=== PATIENT | male | born 1950 | race Caucasian/White ===

== ENCOUNTER 2021-03-03 11:35 | Observation (INO) ==
[2021-03-03] MEDS ORDERED: Isovue-370 500 ML BOTTLE IVP ONE (13:03)
[2021-03-03 13:56] LABS: Basophils % 0.3 %; Eosinophils % 0.3 %; Hematocrit 30.9 % (37.5-50.1); Hemoglobin 9.8 g/dL (12.9-16.9); Immature Granulocytes % 1.3 % (0-4); Lymphocytes # 0.4 K/mcL (0.6-4.6); Mean Corpuscular HGB Conc 31.7 g/dL (31.6-35.5); Mean Corpuscular Hemoglobin 29.2 pg (28.0-33.3); Mean Platelet Volume 9.8 fL (9.4-12.4); Monocytes # 1.1 K/mcL (0.0-1.3); Monocytes % 12.9 %; Platelet Count 281 K/mcL (140-400); Red Blood Count 3.36 M/mcL (4.19-5.50); Segmented Neutrophils % 80.2 %; White Blood Count 8.8 K/mcL (4.3-11.1)
[2021-03-03 14:29] LABS: BUN/Creatinine Ratio 13 (6-26); Blood Urea Nitrogen 16 mg/dL (8-23); Calcium 8.2 mg/dL (8.6-10.3); Carbon Dioxide 29 mEq/L (23-29); Chloride 101 mEq/L (98-107); Glucose 112 mg/dL (70-105); Osmolality,Calculated 286 (280-300); Potassium 3.5 mEq/L (3.5-5.1); Sodium 137 mEq/L (136-145); eGFR For African Americans > 60 (> 60); eGFR For Non-African Americans 59 (> 60)
[2021-03-03] MEDS ORDERED: Aspirin 325 MG TABLET PO ONE (14:29)
[2021-03-03] MEDS ORDERED: Naloxone 0.4 MG/ML INJ IVP PRN (16:20)
[2021-03-03] MEDS ORDERED: Melatonin 3 MG TABLET PO PRN (16:26)
[2021-03-03] MEDS ORDERED: Ondansetron 4 MG/2 ML VIAL IVP PRN (16:26)
[2021-03-03] MEDS ORDERED: MethylPREDNISolone 40 MG/ML VIAL IVP SCH (16:45)
[2021-03-03] MEDS ORDERED: Ipratropium/Albuterol Neb 3 ML IH PRN (16:45)
[2021-03-03] MEDS ORDERED: Perflutren Lipid Microsphere 1.3 ML in 0.9 % Sodium Chloride 8.7 ML IVP PRN (16:46)
[2021-03-03] MEDS ORDERED: Ipratropium/Albuterol Neb 3 ML IH ONE (17:34)
[2021-03-03] MEDS ORDERED: Nitroglycerin 0.4 MG TAB.SUBL SL PRN (18:41)
[2021-03-03] MEDS ORDERED: D5% in Water 1,000 ML IVC PRN (18:43)
[2021-03-03] MEDS ORDERED: Dextrose Gel 15 GM/37.5 ML TUBE PO PRN ×2 (18:43)
[2021-03-03] MEDS ORDERED: *HR* Dextrose 50 % in Water (Vial) 50 ML VIAL IVP PRN (18:43)
[2021-03-03 19:06] LABS: Estimated Average Glucose 143 mg/dl; Hemoglobin A1C 6.6 %
[2021-03-03 19:39] LABS: Magnesium 1.6 mg/dL (1.6-2.6); Phosphorous 3.1 mg/dL (2.7-4.5)
[2021-03-03 19:43] LABS: Troponin I 0.1 ng/mL (< 0.04)
[2021-03-03] MEDS: Ipratropium/Albuterol Neb 3 ML IH SCH ×2 (19:50→23:00)
[2021-03-03] MEDS: Budesonide/Formoterol 160/4.5 1 PUFF INH IH SCH (19:50)
[2021-03-03 19:54] LABS: Thyroid Stimulating Hormone 10.591 mcIU/mL (0.340-5.600)
[2021-03-03] MEDS ORDERED: Acetylcysteine 10% 2 ML INHSOL IH SCH (20:00)
[2021-03-03] MEDS: Ampicillin/Sulbactam 3,000 MG in 0.9 % Sodium Chloride Mini Bag 100 ML IVPB SCH ×2 (20:41→23:59)
[2021-03-03 23:03] LABS: Adenovirus Not Detected (Not Detect); Bordetella Pertussis Not Detected (Not Detect); Chlamydophila pneumoniae Not Detected (Not Detect); Coronavirus 229E Not Detected (Not Detect); Coronavirus HKU1 Not Detected (Not Detect); Coronavirus NL63 Not Detected (Not Detect); Coronavirus OC43 Not Detected (Not Detect); Human Metapneumovirus Not Detected (Not Detect); Human Rhinovirus/Enterovirus Not Detected (Not Detect); Influenza A Subtype 2009 H1 Not Detected (Not Detect); Influenza B Not Detected (Not Detect); Mycoplasma pneumoniae Not Detected (Not Detect); Parainfluenza Virus 1 Not Detected (Not Detect); Parainfluenza Virus 2 Not Detected (Not Detect); Parainfluenza Virus 3 Not Detected (Not Detect); Parainfluenza Virus 4 Not Detected (Not Detect); Respiratory Syncytial Virus Not Detected (Not Detect); SARS-CoV-2 Not Detected (Not Detect)
[2021-03-04] MEDS: Ipratropium/Albuterol Neb 3 ML IH SCH ×3 (04:20→11:40)
[2021-03-04] MEDS: Ampicillin/Sulbactam 3,000 MG in 0.9 % Sodium Chloride Mini Bag 100 ML IVPB SCH ×2 (05:00→14:07)
[2021-03-04 05:11] LABS: Basophils % 0.2 %; Hematocrit 27.6 % (37.5-50.1); Hemoglobin 8.8 g/dL (12.9-16.9); Lymphocytes # 0.3 K/mcL (0.6-4.6); Lymphocytes % 4.2 %; Mean Corpuscular HGB Conc 31.9 g/dL (31.6-35.5); Mean Corpuscular Hemoglobin 28.8 pg (28.0-33.3); Mean Corpuscular Volume 90.2 fL (83.0-100.0); Mean Platelet Volume 9.9 fL (9.4-12.4); Monocytes # 0.4 K/mcL (0.0-1.3); Neutrophils # 5.3 K/mcL (1.6-8.9); Platelet Count 230 K/mcL (140-400); Red Blood Count 3.06 M/mcL (4.19-5.50); Segmented Neutrophils % 88.6 %
[2021-03-04 05:32] LABS: Alanine Aminotransferase 8 Units/L (7-52); Albumin/Globulin Ratio 1.4 (1.1-2.2); Alkaline Phosphatase 45 Units/L (34-104); Aspartate Amino Transferase 11 Units/L (13-39); BUN/Creatinine Ratio 14 (6-26); Bilirubin,Total 0.3 mg/dL (0.3-1.0); Blood Urea Nitrogen 16 mg/dL (8-23); Calcium 8.2 mg/dL (8.6-10.3); Carbon Dioxide 28 mEq/L (23-29); Chloride 102 mEq/L (98-107); Globulin 2.2 g/dL (2.4-3.5); Glucose 175 mg/dL (70-105); Magnesium 1.6 mg/dL (1.6-2.6); Osmolality,Calculated 291 (280-300); Phosphorous 3.6 mg/dL (2.7-4.5); Potassium 3.8 mEq/L (3.5-5.1); Sodium 138 mEq/L (136-145); Total Protein 5.2 g/dL (6.4-8.9); eGFR For African Americans > 60 (> 60); eGFR For Non-African Americans > 60 (> 60)
[2021-03-04] MEDS ORDERED: Sucralfate 1 GM TABLET PO PRN (07:37)
[2021-03-04] MEDS ORDERED: MethylPREDNISolone 40 MG/ML VIAL IVP SCH (08:00)
[2021-03-04] MEDS: Budesonide/Formoterol 160/4.5 1 PUFF INH IH SCH (08:15)
[2021-03-04] MEDS ORDERED: lisinopriL 20 MG TABLET PO SCH (09:00)
[2021-03-04] MEDS ORDERED: Cyanocobalamin (B-12) 1,000 MCG TABLET PO SCH (09:00)
[2021-03-04] MEDS ORDERED: Lactobacillus 1 EACH CAP.SPRINK PO SCH (09:00)
[2021-03-04] MEDS: Calcium Gluconate 1gm/50mL 1 GM/50 ML BAG IVPB SCH ×2 (10:47→11:51)
[2021-03-04 11:18] LABS: Hematocrit 27.1 % (37.5-50.1); Hemoglobin 8.8 g/dL (12.9-16.9)
[2021-03-04 12:00] LABS: Triiodothyronine (T3) Total 0.72 ng/mL (0.87-1.78)
[2021-03-04 12:13] VITALS: BP 142/88
== END 2021-03-04 16:18 | disposition home health service (06) ==
LOC: EMEROOARM 11:35 → 2NENU 11:35 → SUATTDRO 16:15 → 2NENU 16:46
PROVIDERS: ADMIT Internal Medicine; ATTEND Internal Medicine

== ENCOUNTER 2021-06-03 08:41 | Observation (INO) ==
[2021-06-03 09:14] LABS: INR 1.2; Prothrombin Time 13.5 Seconds (9.4-12.1)
[2021-06-03] MEDS ORDERED: *HR* FentaNYL (PF) 100 MCG/2 ML VIAL ONE (11:03)
[2021-06-03] MEDS ORDERED: *HR* FentaNYL (PF) 100 MCG/2 ML VIAL IVP ONE (11:15)
[2021-06-03] MEDS ORDERED: Naloxone 0.4 MG/ML INJ IVP PRN (12:41)
[2021-06-03] MEDS ORDERED: Acetaminophen 325 MG TABLET PO PRN (12:41)
[2021-06-03] MEDS ORDERED: Ondansetron 4 MG/2 ML VIAL IVP PRN (12:41)
[2021-06-03] MEDS ORDERED: Melatonin 3 MG TABLET PO PRN (12:41)
[2021-06-03] MEDS: *HR* HYDROcodone/Acet 5/325 mg TABLET PO PRN ×2 (12:54→20:07)
[2021-06-03 13:36] LABS: Basophils % 0.3 %; Eosinophils # 0.4 K/mcL (0.0-0.6); Eosinophils % 2.6 %; Hematocrit 34.2 % (37.5-50.1); Hemoglobin 11.4 g/dL (12.9-16.9); Immature Granulocytes % 0.6 % (0-4); Lymphocytes # 0.6 K/mcL (0.6-4.6); Lymphocytes % 4.1 %; Mean Corpuscular HGB Conc 33.3 g/dL (31.6-35.5); Mean Corpuscular Hemoglobin 30.4 pg (28.0-33.3); Mean Corpuscular Volume 91.2 fL (83.0-100.0); Mean Platelet Volume 9.2 fL (9.4-12.4); Monocytes % 7.3 %; Platelet Count 310 K/mcL (140-400); Red Blood Count 3.75 M/mcL (4.19-5.50); Red Cell Distribution Width 13.3 % (11.5-14.5); Segmented Neutrophils % 85.1 %; White Blood Count 14.1 K/mcL (4.3-11.1)
[2021-06-03 13:51] LABS: Calcium 9.4 mg/dL (8.6-10.3); Magnesium 1.8 mg/dL (1.6-2.6); Phosphorous 3.8 mg/dL (2.7-4.5); Potassium 4.5 mEq/L (3.5-5.1)
[2021-06-03] MEDS: *HR* OxyCODONE Immed Rel 5 MG TABLET PO PRN ×2 (15:27→22:47)
[2021-06-03] MEDS ORDERED: methylPREDNISolone 125 MG/2 ML VIAL IVP ONE (17:11)
[2021-06-03] MEDS: Ringers Solution, Lactated 1,000 ML IVC SCH (17:53)
[2021-06-03] MEDS: Ipratropium/Albuterol Neb 3 ML IH SCH ×3 (19:12→23:28)
[2021-06-03] MEDS ORDERED: Ipratropium/Albuterol Neb 3 ML IH SCH (20:00)
[2021-06-03] MEDS: Budesonide/Formoterol 160/4.5 1 PUFF INH IH SCH (20:06)
[2021-06-03] MEDS: Chlorhexidine Rinse 15 ML MOUTHWASH MM SCH (20:07)
[2021-06-03] MEDS: Acetylcysteine 10% 2 ML INHSOL IH SCH (22:49)
[2021-06-04] MEDS: Ipratropium/Albuterol Neb 3 ML IH SCH ×4 (03:45→15:45)
[2021-06-04] MEDS: *HR* HYDROcodone/Acet 5/325 mg TABLET PO PRN ×2 (03:46→15:11)
[2021-06-04] MEDS: Ringers Solution, Lactated 1,000 ML IVC SCH (03:49)
[2021-06-04] MEDS: Budesonide/Formoterol 160/4.5 1 PUFF INH IH SCH (07:26)
[2021-06-04] MEDS: Acetylcysteine 10% 2 ML INHSOL IH SCH (07:28)
[2021-06-04] MEDS ORDERED: lisinopriL 20 MG TABLET PO SCH (09:00)
[2021-06-04] MEDS ORDERED: Sulfamethoxazole/Trimeth DS 1 EACH TABLET PO SCH (09:00)
[2021-06-04] MEDS ORDERED: predniSONE 20 MG TABLET PO SCH (09:00)
[2021-06-04] MEDS ORDERED: hydroCHLOROthiazide 25 MG TABLET PO SCH (09:00)
[2021-06-04] MEDS: Chlorhexidine Rinse 15 ML MOUTHWASH MM SCH (09:08)
[2021-06-04 09:25] LABS: Eosinophils % 0.9 %; Hematocrit 34.1 % (37.5-50.1); Immature Granulocytes % 0.5 % (0-4); Lymphocytes % 4.3 %; Mean Corpuscular HGB Conc 32.3 g/dL (31.6-35.5); Mean Corpuscular Hemoglobin 29.7 pg (28.0-33.3); Mean Corpuscular Volume 92.2 fL (83.0-100.0); Monocytes % 5.3 %; Platelet Count 276 K/mcL (140-400); Red Cell Distribution Width 13.4 % (11.5-14.5); Segmented Neutrophils % 88.8 %; White Blood Count 12.9 K/mcL (4.3-11.1)
[2021-06-04 09:26] LABS: Basophils % 0.2 %; Eosinophils # 0.1 K/mcL (0.0-0.6); Lymphocytes # 0.6 K/mcL (0.6-4.6); Monocytes # 0.7 K/mcL (0.0-1.3); Neutrophils # 11.4 K/mcL (1.6-8.9)
[2021-06-04 09:44] LABS: Calcium 9.2 mg/dL (8.6-10.3); Magnesium 1.8 mg/dL (1.6-2.6); Phosphorous 4.2 mg/dL (2.7-4.5)
[2021-06-04 15:19] VITALS: BP 137/80; PULSE 72; TEMP 98.2
[2021-06-04 15:48] VITALS: O2SAT 96
== END 2021-06-04 17:44 | disposition home or self-care (01) ==
LOC: SUATTDRO → 2NENU 08:41 → RAD 08:41
PROVIDERS: ADMIT Internal Medicine; ATTEND Internal Medicine

== ENCOUNTER 2021-08-15 02:53 | Inpatient (IN) ==
[2021-08-15] MEDS ORDERED: Aspirin 81 MG TAB.CHEW PO ONE (03:09)
[2021-08-15] MEDS ORDERED: *HR* Ticagrelor 90 MG TABLET PO STA (03:09)
[2021-08-15] MEDS ORDERED: Nitroglycerin 1,000 MCG/5 ML VIAL IV ONE (03:29)
[2021-08-15] MEDS ORDERED: 0.9 % Sodium Chloride 1,000 ML ONE ×2 (03:29→03:55)
[2021-08-15] MEDS ORDERED: Heparin 1,000 UNITS/500 mL 500 ML ONE (03:29)
[2021-08-15] MEDS ORDERED: ISOVUE-370 200 ML INFUS..BTL ONE ×2 (03:29→04:16)
[2021-08-15] MEDS ORDERED: *HR* Heparin 10,000 UNIT/10 ML VIAL ONE ×2 (03:29→04:07)
[2021-08-15] MEDS ORDERED: *HR* FentaNYL (PF) 100 MCG/2 ML VIAL ONE (03:37)
[2021-08-15] MEDS ORDERED: *HR* Midazolam HCl 2 MG/2 ML VIAL ONE (03:37)
[2021-08-15 03:40] LABS: Basophils # 0.1 K/mcL (0.0-0.2); Basophils % 0.4 %; Eosinophils # 0.4 K/mcL (0.0-0.6); Eosinophils % 2.6 %; Hematocrit 30.5 % (37.5-50.1); Hemoglobin 9.1 g/dL (12.9-16.9); Immature Granulocytes % 0.4 % (0-4); Lymphocytes # 0.7 K/mcL (0.6-4.6); Lymphocytes % 5.1 %; Mean Corpuscular HGB Conc 29.8 g/dL (31.6-35.5); Mean Corpuscular Hemoglobin 27.9 pg (28.0-33.3); Mean Corpuscular Volume 93.6 fL (83.0-100.0); Mean Platelet Volume 9.4 fL (9.4-12.4); Monocytes % 7.3 %; Neutrophils # 11.3 K/mcL (1.6-8.9); Platelet Count 327 K/mcL (140-400); Red Blood Count 3.26 M/mcL (4.19-5.50); Red Cell Distribution Width 14.1 % (11.5-14.5); Segmented Neutrophils % 84.2 %; White Blood Count 13.4 K/mcL (4.3-11.1)
[2021-08-15 03:46] LABS: BUN/Creatinine Ratio 12 (6-26); Blood Urea Nitrogen 15 mg/dL (8-23); Calcium 9.4 mg/dL (8.6-10.3); Carbon Dioxide 33 mEq/L (23-29); Chloride 94 mEq/L (98-107); Glucose 179 mg/dL (70-105); Osmolality,Calculated 285 (280-300); Potassium 4.1 mEq/L (3.5-5.1); Sodium 135 mEq/L (136-145); eGFR For African Americans > 60 (> 60); eGFR For Non-African Americans 57 (> 60)
[2021-08-15 04:01] LABS: Troponin I 0.05 ng/mL (< 0.04)
[2021-08-15 04:02] LABS: INR 1.2; Prothrombin Time 13.4 Seconds (9.4-12.1)
[2021-08-15] MEDS ORDERED: *HR* Ticagrelor 90 MG TABLET ONE (04:03)
[2021-08-15 04:04] LABS: Activated Partial Thrombo Time 31.6 Seconds (26.0-36.0)
[2021-08-15] MEDS ORDERED: Tirofiban 12.5 MG/250ML 12.5 MG/250 ML BAG ONE (04:12)
[2021-08-15] MEDS ORDERED: niCARdipine 20 MG/200 ML MLS IVC ONE (04:21)
[2021-08-15] MEDS ORDERED: Protamine Sulfate 50 MG/5 ML VIAL IVP ONE (04:38)
[2021-08-15] MEDS ORDERED: Acetylcysteine 10% 2 ML INHSOL IH PRN (04:50)
[2021-08-15] MEDS ORDERED: Albuterol 2.5 MG/3 ML NEBULIZER IH PRN (04:50)
[2021-08-15] MEDS ORDERED: Tirofiban 12.5 MG/250ML 12.5 MG/250 ML BAG IVC SCH (05:00)
[2021-08-15] MEDS: Metoprolol XL (24 HR) Succ 25 MG TAB.ER.24H PO SCH (08:01)
[2021-08-15] MEDS: *HR* OxyCODONE Immed Rel 5 MG TABLET PO PRN ×3 (08:02→21:44)
[2021-08-15] MEDS: lisinopriL 20 MG TABLET PO SCH (08:04)
[2021-08-15] MEDS: dexAMETHasone 4 MG TABLET PO SCH (08:04)
[2021-08-15] MEDS: Budesonide/Formoterol 160/4.5 1 PUFF INH IH SCH ×2 (10:16→19:37)
[2021-08-15] MEDS ORDERED: Perflutren Lipid Microsphere 1.3 ML in 0.9 % Sodium Chloride 8.7 ML IVP PRN (14:21)
[2021-08-15] MEDS: Azithromycin 500 MG in 0.9 % Sodium Chloride 250 ML IVPB SCH (15:01)
[2021-08-15] MEDS: cefTRIAXone 1,000 MG in 0.9 % Sodium Chloride Mini Bag 100 ML IVPB SCH (15:55)
[2021-08-15] MEDS: Patient Taking Own Medication 1 EACH NS SCH ×2 (17:47→20:15)
[2021-08-15] MEDS: *HR* Heparin 5,000 UNIT/ML VIAL SQ SCH (17:47)
[2021-08-15] MEDS: *HR* Ticagrelor 90 MG TABLET PO SCH (20:15)
[2021-08-16] MEDS: *HR* OxyCODONE Immed Rel 5 MG TABLET PO PRN ×3 (03:15→17:38)
[2021-08-16] MEDS: *HR* Heparin 5,000 UNIT/ML VIAL SQ SCH ×2 (06:00→17:38)
[2021-08-16 07:13] LABS: Basophils % 0.3 %; Eosinophils # 0.4 K/mcL (0.0-0.6); Eosinophils % 2.8 %; Hematocrit 28.5 % (37.5-50.1); Hemoglobin 8.9 g/dL (12.9-16.9); Immature Granulocytes % 0.4 % (0-4); Lymphocytes # 0.5 K/mcL (0.6-4.6); Lymphocytes % 3.6 %; Mean Corpuscular HGB Conc 31.2 g/dL (31.6-35.5); Mean Corpuscular Hemoglobin 28.7 pg (28.0-33.3); Mean Corpuscular Volume 91.9 fL (83.0-100.0); Mean Platelet Volume 9.6 fL (9.4-12.4); Monocytes # 1.1 K/mcL (0.0-1.3); Monocytes % 7.9 %; Neutrophils # 11.8 K/mcL (1.6-8.9); Platelet Count 350 K/mcL (140-400); Red Cell Distribution Width 14.3 % (11.5-14.5); White Blood Count 13.9 K/mcL (4.3-11.1)
[2021-08-16 07:32] LABS: BUN/Creatinine Ratio 13 (6-26); Blood Urea Nitrogen 15 mg/dL (8-23); Calcium 9.1 mg/dL (8.6-10.3); Carbon Dioxide 32 mEq/L (23-29); Chloride 95 mEq/L (98-107); Glucose 115 mg/dL (70-105); Osmolality,Calculated 278 (280-300); Potassium 4.3 mEq/L (3.5-5.1); Sodium 133 mEq/L (136-145); eGFR For African Americans > 60 (> 60); eGFR For Non-African Americans > 60 (> 60)
[2021-08-16] MEDS: lisinopriL 20 MG TABLET PO SCH (08:05)
[2021-08-16] MEDS: Metoprolol XL (24 HR) Succ 25 MG TAB.ER.24H PO SCH (08:06)
[2021-08-16] MEDS: cefTRIAXone 1,000 MG in 0.9 % Sodium Chloride Mini Bag 100 ML IVPB SCH (08:06)
[2021-08-16] MEDS: Patient Taking Own Medication 1 EACH NS SCH ×2 (08:06→21:20)
[2021-08-16] MEDS: *HR* Ticagrelor 90 MG TABLET PO SCH ×2 (08:07→21:19)
[2021-08-16] MEDS: dexAMETHasone 4 MG TABLET PO SCH (08:07)
[2021-08-16] MEDS: Aspirin 81 MG TAB.CHEW PO SCH (08:07)
[2021-08-16] MEDS ORDERED: Metoprolol XL (24 HR) Succ 25 MG TAB.ER.24H PO ONE (09:30)
[2021-08-16] MEDS: Budesonide/Formoterol 160/4.5 1 PUFF INH IH SCH ×2 (11:31→20:09)
[2021-08-16] MEDS: Azithromycin 500 MG in 0.9 % Sodium Chloride 250 ML IVPB SCH (11:58)
[2021-08-16] MEDS: traZODone 50 MG TABLET PO SCH (21:19)
[2021-08-17] MEDS: *HR* OxyCODONE Immed Rel 5 MG TABLET PO PRN ×3 (03:52→19:41)
[2021-08-17] MEDS: *HR* Heparin 5,000 UNIT/ML VIAL SQ SCH ×2 (05:37→19:41)
[2021-08-17] MEDS: cefTRIAXone 1,000 MG in 0.9 % Sodium Chloride Mini Bag 100 ML IVPB SCH (08:13)
[2021-08-17] MEDS: Aspirin 81 MG TAB.CHEW PO SCH (08:13)
[2021-08-17] MEDS: dexAMETHasone 4 MG TABLET PO SCH (08:14)
[2021-08-17] MEDS: *HR* Ticagrelor 90 MG TABLET PO SCH ×2 (08:14→23:00)
[2021-08-17] MEDS: Metoprolol XL (24 HR) Succ 25 MG TAB.ER.24H PO SCH (08:14)
[2021-08-17] MEDS: Patient Taking Own Medication 1 EACH NS SCH ×2 (08:14→22:59)
[2021-08-17] MEDS: lisinopriL 20 MG TABLET PO SCH (08:14)
[2021-08-17 09:06] LABS: Basophils # 0.1 K/mcL (0.0-0.2); Basophils % 0.4 %; Eosinophils # 0.3 K/mcL (0.0-0.6); Eosinophils % 1.9 %; Hemoglobin 9.2 g/dL (12.9-16.9); Immature Granulocytes % 0.7 % (0-4); Lymphocytes # 0.7 K/mcL (0.6-4.6); Lymphocytes % 5.2 %; Mean Corpuscular HGB Conc 30.7 g/dL (31.6-35.5); Mean Corpuscular Hemoglobin 28.3 pg (28.0-33.3); Mean Corpuscular Volume 92.3 fL (83.0-100.0); Mean Platelet Volume 9.5 fL (9.4-12.4); Monocytes % 7.2 %; Platelet Count 366 K/mcL (140-400); Red Blood Count 3.25 M/mcL (4.19-5.50); Red Cell Distribution Width 14.4 % (11.5-14.5); Segmented Neutrophils % 84.6 %; White Blood Count 14.2 K/mcL (4.3-11.1)
[2021-08-17 09:25] LABS: BUN/Creatinine Ratio 15 (6-26); Blood Urea Nitrogen 19 mg/dL (8-23); Calcium 9.3 mg/dL (8.6-10.3); Carbon Dioxide 33 mEq/L (23-29); Chloride 95 mEq/L (98-107); Glucose 108 mg/dL (70-105); Osmolality,Calculated 279 (280-300); Sodium 133 mEq/L (136-145); eGFR For African Americans > 60 (> 60); eGFR For Non-African Americans 57 (> 60)
[2021-08-17] MEDS: Budesonide/Formoterol 160/4.5 1 PUFF INH IH SCH ×2 (10:10→21:11)
[2021-08-17] MEDS ORDERED: Isovue-370 500 ML BOTTLE IVP ONE (12:31)
[2021-08-17] MEDS: traZODone 50 MG TABLET PO SCH (22:58)
[2021-08-18] MEDS: *HR* OxyCODONE Immed Rel 5 MG TABLET PO PRN ×2 (02:05→14:27)
[2021-08-18] MEDS: *HR* Heparin 5,000 UNIT/ML VIAL SQ SCH (05:34)
[2021-08-18 07:21] VITALS: BP 120/69; TEMP 97.9
[2021-08-18] MEDS: Budesonide/Formoterol 160/4.5 1 PUFF INH IH SCH (08:40)
[2021-08-18] MEDS: Aspirin 81 MG TAB.CHEW PO SCH (08:50)
[2021-08-18] MEDS: lisinopriL 20 MG TABLET PO SCH (08:50)
[2021-08-18] MEDS: Metoprolol XL (24 HR) Succ 25 MG TAB.ER.24H PO SCH (08:50)
[2021-08-18] MEDS: dexAMETHasone 4 MG TABLET PO SCH (08:50)
[2021-08-18] MEDS: *HR* Ticagrelor 90 MG TABLET PO SCH (08:51)
[2021-08-18] MEDS: Patient Taking Own Medication 1 EACH NS SCH (08:56)
[2021-08-18 09:04] VITALS: O2SAT 96
[2021-08-18] MEDS ORDERED: E-Z-PAQUE (BARIUM SULF) SUSP 1 BOTTLE PO ONE (09:36)
[2021-08-18] MEDS ORDERED: Barium Sulfate 1 TAB TABLET PO ONE (09:36)
[2021-08-18 10:01] VITALS: PULSE 80
== END 2021-08-18 17:03 | disposition home or self-care (01) | DRG 247 ==
LOC: EMEROOARM 02:53 → 2NNU 03:47 → 2NENU 08-17 18:22
PROVIDERS: ADMIT Internal Medicine Interventional Cardiology; ATTEND Internal Medicine Interventional Cardiology

== ENCOUNTER 2021-08-22 01:18 | Inpatient (IN) ==
[2021-08-22] MEDS ORDERED: Isovue-370 500 ML BOTTLE IVP ONE (01:58)
[2021-08-22 02:23] LABS: Basophils # 0.1 K/mcL (0.0-0.2); Basophils % 0.3 %; Eosinophils # 0.3 K/mcL (0.0-0.6); Eosinophils % 1.2 %; Hematocrit 29.6 % (37.5-50.1); Immature Granulocytes % 1.2 % (0-4); Lymphocytes # 0.5 K/mcL (0.6-4.6); Mean Corpuscular HGB Conc 30.4 g/dL (31.6-35.5); Mean Corpuscular Hemoglobin 28.5 pg (28.0-33.3); Mean Corpuscular Volume 93.7 fL (83.0-100.0); Mean Platelet Volume 9.3 fL (9.4-12.4); Monocytes % 5.5 %; Neutrophils # 20.3 K/mcL (1.6-8.9); Platelet Count 361 K/mcL (140-400); Red Blood Count 3.16 M/mcL (4.19-5.50); Red Cell Distribution Width 14.9 % (11.5-14.5); Segmented Neutrophils % 89.8 %
[2021-08-22 02:24] LABS: Monocytes # 1.2 K/mcL (0.0-1.3); White Blood Count 22.6 K/mcL (4.3-11.1)
[2021-08-22 02:45] LABS: BUN/Creatinine Ratio 24 (6-26); Blood Urea Nitrogen 29 mg/dL (8-23); Carbon Dioxide 29 mEq/L (23-29); Chloride 97 mEq/L (98-107); Glucose 147 mg/dL (70-105); Osmolality,Calculated 289 (280-300); Potassium 3.8 mEq/L (3.5-5.1); Sodium 135 mEq/L (136-145); eGFR For African Americans > 60 (> 60); eGFR For Non-African Americans 60 (> 60)
[2021-08-22] MEDS ORDERED: Aspirin 81 MG TAB.CHEW PO ONE (02:55)
[2021-08-22] MEDS ORDERED: *HR* Heparin 5,000 UNIT/ML VIAL IVP PRN ×2 (02:59)
[2021-08-22] MEDS ORDERED: *HR* Heparin 5,000 UNIT/ML VIAL IVP ONE (02:59)
[2021-08-22] MEDS ORDERED: Heparin 25,000UNIT/250ML 1/2NS 25,000 UNIT/250 ML IV.SOLN IVC SCH ×2 (03:00→03:15)
[2021-08-22 03:37] LABS: Hematocrit 27.7 % (37.5-50.1); Hemoglobin 8.4 g/dL (12.9-16.9); Mean Corpuscular HGB Conc 30.3 g/dL (31.6-35.5); Mean Corpuscular Hemoglobin 28.5 pg (28.0-33.3); Mean Corpuscular Volume 93.9 fL (83.0-100.0); Mean Platelet Volume 9.2 fL (9.4-12.4); Platelet Count 340 K/mcL (140-400); Red Blood Count 2.95 M/mcL (4.19-5.50); Red Cell Distribution Width 14.9 % (11.5-14.5); White Blood Count 21.2 K/mcL (4.3-11.1)
[2021-08-22 03:48] LABS: Heparin anti-factor XA UFH < 0.04 IU/mL (0.30-0.70)
[2021-08-22 03:49] LABS: INR 1.2; Prothrombin Time 13.8 Seconds (9.4-12.1)
[2021-08-22] MEDS ORDERED: Vancomycin 1,750 MG/517.5 ML IV.SOLN IVPB ONE (04:19)
[2021-08-22] MEDS ORDERED: Piperacillin/Tazobactam 3.375 GM in 0.9 % Sodium Chloride Mini Bag 100 ML IVPB ONE (04:19)
[2021-08-22 05:38] LABS: Influenza A PCR Negative (Negative); Influenza B PCR Negative (Negative); Resp. Syncytial Virus PCR Negative (Negative)
[2021-08-22 05:39] LABS: SARS-CoV-2 by PCR (In House) Negative (Negative)
[2021-08-22] MEDS ORDERED: Naloxone 0.4 MG/ML INJ IVP PRN (06:17)
[2021-08-22] MEDS ORDERED: Acetaminophen 325 MG TABLET PO PRN (06:17)
[2021-08-22] MEDS ORDERED: Ondansetron ODT 4 MG TAB.RAPDIS SL PRN (06:17)
[2021-08-22] MEDS ORDERED: Metoprolol XL (24 HR) Succ 25 MG TAB.ER.24H PO SCH (09:00)
[2021-08-22] MEDS: Metoprolol XL (24 HR) Succ 50 MG TAB.ER.24H PO SCH (09:11)
[2021-08-22] MEDS: *HR* Ticagrelor 90 MG TABLET PO SCH ×2 (09:11→21:57)
[2021-08-22] MEDS: Aspirin 81 MG TAB.CHEW PO SCH (09:13)
[2021-08-22 13:51] LABS: Bilirubin,Urine Negative (Negative); Blood,Urine Negative (Negative); Clarity,Urine Clear (Clear); Color,Urine Light-Yellow (Yellow); Glucose,Urine (UA) Normal (Normal); Ketones,Urine Negative (Negative); Leukocyte Esterase,Urine Negative (Negative); Nitrite,Urine Negative (Negative); Protein,Urine Trace mg/dL (Neg-Trace); Specific Gravity,Urine > 1.030 (1.010-1.025); Urobilinogen,Urine Normal (Normal)
[2021-08-22] MEDS: Piperacillin/Tazobactam 3.375 GM in 0.9 % Sodium Chloride Mini Bag 100 ML IVPB SCH ×2 (14:40→21:55)
[2021-08-22] MEDS: Ipratropium/Albuterol Neb 3 ML IH PRN (17:46)
[2021-08-22] MEDS ORDERED: *HR* HYDROcodone/Acet 5/325 mg TABLET PO PRN (20:41)
[2021-08-22] MEDS ORDERED: Vancomycin 1,500 MG/265 ML IV.SOLN IVPB SCH (21:00)
[2021-08-22] MEDS: *HR* OxyCODONE Immed Rel 5 MG TABLET PO PRN (21:57)
[2021-08-22] MEDS: Budesonide/Formoterol 160/4.5 1 PUFF INH IH SCH (22:23)
[2021-08-23 02:51] LABS: INR 1.3; Prothrombin Time 14.2 Seconds (9.4-12.1)
[2021-08-23 02:53] LABS: Basophils % 0.3 %; Eosinophils # 0.5 K/mcL (0.0-0.6); Eosinophils % 3.6 %; Hematocrit 28.8 % (37.5-50.1); Hemoglobin 8.7 g/dL (12.9-16.9); Immature Granulocytes % 0.8 % (0-4); Lymphocytes # 0.5 K/mcL (0.6-4.6); Lymphocytes % 3.6 %; Mean Corpuscular HGB Conc 30.2 g/dL (31.6-35.5); Mean Corpuscular Hemoglobin 28.1 pg (28.0-33.3); Mean Corpuscular Volume 92.9 fL (83.0-100.0); Mean Platelet Volume 9.5 fL (9.4-12.4); Monocytes # 0.8 K/mcL (0.0-1.3); Monocytes % 6.1 %; Neutrophils # 11.8 K/mcL (1.6-8.9); Platelet Count 324 K/mcL (140-400); Red Cell Distribution Width 15.4 % (11.5-14.5); Segmented Neutrophils % 85.6 %; White Blood Count 13.8 K/mcL (4.3-11.1)
[2021-08-23 02:57] LABS: Alanine Aminotransferase 13 Units/L (7-52); Albumin 3.2 g/dL (3.5-5.7); Albumin/Globulin Ratio 1.2 (1.1-2.2); Alkaline Phosphatase 49 Units/L (34-104); Aspartate Amino Transferase 15 Units/L (13-39); BUN/Creatinine Ratio 17 (6-26); Bilirubin,Total 0.5 mg/dL (0.3-1.0); Blood Urea Nitrogen 20 mg/dL (8-23); Calcium 8.4 mg/dL (8.6-10.3); Carbon Dioxide 26 mEq/L (23-29); Chloride 100 mEq/L (98-107); Globulin 2.7 g/dL (2.4-3.5); Glucose 103 mg/dL (70-105); Magnesium 1.6 mg/dL (1.6-2.6); Osmolality,Calculated 281 (280-300); Potassium 3.9 mEq/L (3.5-5.1); Sodium 134 mEq/L (136-145); Total Protein 5.9 g/dL (6.4-8.9); eGFR For African Americans > 60 (> 60); eGFR For Non-African Americans > 60 (> 60)
[2021-08-23] MEDS: *HR* Enoxaparin 40 MG/0.4 ML SYRINGE SQ SCH (06:08)
[2021-08-23] MEDS: Piperacillin/Tazobactam 3.375 GM in 0.9 % Sodium Chloride Mini Bag 100 ML IVPB SCH ×3 (06:09→22:37)
[2021-08-23] MEDS: *HR* OxyCODONE Immed Rel 5 MG TABLET PO PRN ×3 (06:10→19:58)
[2021-08-23] MEDS: Metoprolol XL (24 HR) Succ 50 MG TAB.ER.24H PO SCH (07:59)
[2021-08-23] MEDS: *HR* Ticagrelor 90 MG TABLET PO SCH ×2 (07:59→22:36)
[2021-08-23] MEDS: Aspirin 81 MG TAB.CHEW PO SCH (08:00)
[2021-08-23 08:09] LABS: Troponin I 1.33 ng/mL (< 0.04)
[2021-08-23] MEDS ORDERED: lisinopriL 20 MG TABLET PO SCH (09:00)
[2021-08-23] MEDS: Budesonide/Formoterol 160/4.5 1 PUFF INH IH SCH ×2 (09:05→20:22)
[2021-08-23] MEDS ORDERED: Isosorbide MONOnitrate (24 HR) 30 MG TAB.ER.24H PO ONE (13:18)
[2021-08-23] MEDS: Ipratropium/Albuterol Neb 3 ML IH PRN (22:08)
[2021-08-24] MEDS: Ipratropium/Albuterol Neb 3 ML IH PRN ×2 (04:42→09:28)
[2021-08-24 05:14] LABS: Basophils # 0.1 K/mcL (0.0-0.2); Basophils % 0.5 %; Eosinophils # 0.6 K/mcL (0.0-0.6); Eosinophils % 3.8 %; Hematocrit 26.6 % (37.5-50.1); Hemoglobin 8.4 g/dL (12.9-16.9); Immature Granulocytes % 1.3 % (0-4); Lymphocytes # 0.6 K/mcL (0.6-4.6); Lymphocytes % 4.1 %; Mean Corpuscular HGB Conc 31.6 g/dL (31.6-35.5); Mean Corpuscular Hemoglobin 29.4 pg (28.0-33.3); Mean Platelet Volume 9.4 fL (9.4-12.4); Monocytes # 1.1 K/mcL (0.0-1.3); Monocytes % 7.2 %; Neutrophils # 12.6 K/mcL (1.6-8.9); Platelet Count 341 K/mcL (140-400); Red Blood Count 2.86 M/mcL (4.19-5.50); Red Cell Distribution Width 15.3 % (11.5-14.5); Segmented Neutrophils % 83.1 %; White Blood Count 15.2 K/mcL (4.3-11.1)
[2021-08-24] MEDS: Piperacillin/Tazobactam 3.375 GM in 0.9 % Sodium Chloride Mini Bag 100 ML IVPB SCH (05:45)
[2021-08-24] MEDS: *HR* Enoxaparin 40 MG/0.4 ML SYRINGE SQ SCH (05:45)
[2021-08-24] MEDS: *HR* OxyCODONE Immed Rel 5 MG TABLET PO PRN ×2 (05:46→13:47)
[2021-08-24 05:54] LABS: BUN/Creatinine Ratio 16 (6-26); Blood Urea Nitrogen 21 mg/dL (8-23); Calcium 8.6 mg/dL (8.6-10.3); Carbon Dioxide 27 mEq/L (23-29); Chloride 100 mEq/L (98-107); Glucose 103 mg/dL (70-105); Osmolality,Calculated 281 (280-300); Potassium 3.9 mEq/L (3.5-5.1); Sodium 134 mEq/L (136-145); eGFR For African Americans > 60 (> 60); eGFR For Non-African Americans 53 (> 60)
[2021-08-24] MEDS: Metoprolol XL (24 HR) Succ 50 MG TAB.ER.24H PO SCH (08:28)
[2021-08-24] MEDS: Aspirin 81 MG TAB.CHEW PO SCH (08:33)
[2021-08-24] MEDS: *HR* Ticagrelor 90 MG TABLET PO SCH (08:34)
[2021-08-24] MEDS: Budesonide/Formoterol 160/4.5 1 PUFF INH IH SCH (09:28)
[2021-08-24 12:44] VITALS: BP 120/63; PULSE 77; TEMP 98.2; O2SAT 98
== END 2021-08-24 13:58 | disposition home or self-care (01) | DRG 871 ==
LOC: EMEROOARM 01:18 → 2NENU 01:18 → SUATTDRO 06:40 → 2NENU 06:54
PROVIDERS: ADMIT Student in an Organized Health Care Education/Training Program; ATTEND Internal Medicine

== ENCOUNTER 2021-08-29 15:01 | Inpatient (IN) ==
[2021-08-29 16:41] LABS: Basophils # 0.1 K/mcL (0.0-0.2); Basophils % 0.3 %; Eosinophils # 0.7 K/mcL (0.0-0.6); Eosinophils % 3.6 %; Hematocrit 33.1 % (37.5-50.1); Hemoglobin 9.7 g/dL (12.9-16.9); Immature Granulocytes % 0.7 % (0-4); Lymphocytes # 0.5 K/mcL (0.6-4.6); Lymphocytes % 2.4 %; Mean Corpuscular HGB Conc 29.3 g/dL (31.6-35.5); Mean Corpuscular Hemoglobin 27.6 pg (28.0-33.3); Mean Platelet Volume 9.6 fL (9.4-12.4); Monocytes % 5.1 %; Neutrophils # 17.8 K/mcL (1.6-8.9); Platelet Count 355 K/mcL (140-400); Red Blood Count 3.52 M/mcL (4.19-5.50); Red Cell Distribution Width 15.6 % (11.5-14.5); Segmented Neutrophils % 87.9 %; White Blood Count 20.3 K/mcL (4.3-11.1)
[2021-08-29 16:47] LABS: Albumin 3.8 g/dL (3.5-5.7); Albumin/Globulin Ratio 1.2 (1.1-2.2); Bilirubin,Direct 0.1 mg/dL (0.0-0.2); Bilirubin,Indirect 0.4 mg/dL (0.0-1.0); Bilirubin,Total 0.5 mg/dL (0.3-1.0); Calcium 9.6 mg/dL (8.6-10.3); Globulin 3.2 g/dL (2.4-3.5); Potassium 3.8 mEq/L (3.5-5.1)
[2021-08-29] MEDS ORDERED: D5% in Lactated Ringers 1,000 ML IVC SCH (17:15)
[2021-08-29] MEDS ORDERED: Acetylcysteine 10% 2 ML INHSOL IH PRN (17:49)
[2021-08-29] MEDS ORDERED: Naloxone 0.4 MG/ML INJ IVP PRN (17:53)
[2021-08-29] MEDS ORDERED: 0.9 % Sodium Chloride 1,000 ML IVC SCH (19:30)
[2021-08-29] MEDS: Budesonide/Formoterol 160/4.5 1 PUFF INH IH SCH (20:57)
[2021-08-29] MEDS: *HR* Ticagrelor 90 MG TABLET PO SCH (22:56)
[2021-08-30] MEDS: *HR* OxyCODONE Immed Rel 5 MG TABLET PO PRN ×2 (01:39→12:50)
[2021-08-30] MEDS: Sodium Chloride for inhalation 3 ML VIAL IH SCH ×3 (03:34→16:40)
[2021-08-30 06:24] LABS: Basophils % 0.2 %; Eosinophils # 0.8 K/mcL (0.0-0.6); Eosinophils % 4.7 %; Hematocrit 30.2 % (37.5-50.1); Hemoglobin 9.4 g/dL (12.9-16.9); Immature Granulocytes % 0.5 % (0-4); Lymphocytes # 0.5 K/mcL (0.6-4.6); Lymphocytes % 2.9 %; Mean Corpuscular HGB Conc 31.1 g/dL (31.6-35.5); Mean Corpuscular Hemoglobin 28.9 pg (28.0-33.3); Mean Corpuscular Volume 92.9 fL (83.0-100.0); Mean Platelet Volume 9.5 fL (9.4-12.4); Neutrophils # 14.1 K/mcL (1.6-8.9); Platelet Count 288 K/mcL (140-400); Red Blood Count 3.25 M/mcL (4.19-5.50); Red Cell Distribution Width 15.3 % (11.5-14.5); Segmented Neutrophils % 85.7 %; White Blood Count 16.5 K/mcL (4.3-11.1)
[2021-08-30 06:43] LABS: BUN/Creatinine Ratio 17 (6-26); Blood Urea Nitrogen 23 mg/dL (8-23); Calcium 8.9 mg/dL (8.6-10.3); Carbon Dioxide 23 mEq/L (23-29); Chloride 102 mEq/L (98-107); Glucose 78 mg/dL (70-105); Osmolality,Calculated 283 (280-300); Sodium 135 mEq/L (136-145); eGFR For African Americans > 60 (> 60); eGFR For Non-African Americans 51 (> 60)
[2021-08-30] MEDS ORDERED: levoFLOXacin 750 MG TABLET PO SCH (09:00)
[2021-08-30] MEDS: Ipratropium/Albuterol Neb 3 ML IH SCH (09:30)
[2021-08-30] MEDS: Budesonide/Formoterol 160/4.5 1 PUFF INH IH SCH ×2 (09:34→21:01)
[2021-08-30] MEDS: levoFLOXacin 750 MG/150 ML 750 MG/150 ML BAG IVPB SCH (11:24)
[2021-08-30] MEDS ORDERED: *HR* Dextrose 50 % in Water (Syg) 50 ML SYRINGE ONE (11:58)
[2021-08-30] MEDS: lisinopriL 20 MG TABLET PO SCH (12:50)
[2021-08-30] MEDS: Aspirin 81 MG TAB.CHEW PO SCH (12:50)
[2021-08-30] MEDS: Metoprolol XL (24 HR) Succ 50 MG TAB.ER.24H PO SCH (12:50)
[2021-08-30] MEDS: Isosorbide MONOnitrate (24 HR) 30 MG TAB.ER.24H PO SCH (12:51)
[2021-08-30] MEDS: *HR* Ticagrelor 90 MG TABLET PO SCH ×2 (12:51→20:44)
[2021-08-30] MEDS ORDERED: *HR* Dextrose 50 % in Water (Vial) 50 ML VIAL ONE (17:37)
[2021-08-30] MEDS ORDERED: Lidocaine -MPF 2% 2 ML VIAL ONE (17:39)
[2021-08-30] MEDS ORDERED: *HR* FentaNYL (PF) 100 MCG/2 ML VIAL ONE (17:39)
[2021-08-30] MEDS ORDERED: *HR* Propofol 200 MG/20 ML VIAL IVP ONE (17:39)
[2021-08-30] MEDS ORDERED: Ondansetron 4 MG/2 ML VIAL ONE (17:39)
[2021-08-30] MEDS: *HR* OxyCODONE Oral Soln 5 MG/5 ML UD.LIQ PO PRN (20:42)
[2021-08-31] MEDS ORDERED: Morphine Sulfate 2 MG/ML SYRINGE IVP ONE (01:04)
[2021-08-31 03:16] LABS: Basophils % 0.1 %; Eosinophils % 0.2 %; Hematocrit 27.9 % (37.5-50.1); Hemoglobin 8.6 g/dL (12.9-16.9); Immature Granulocytes % 0.6 % (0-4); Lymphocytes # 0.2 K/mcL (0.6-4.6); Lymphocytes % 1.2 %; Mean Corpuscular HGB Conc 30.8 g/dL (31.6-35.5); Mean Corpuscular Hemoglobin 28.5 pg (28.0-33.3); Mean Corpuscular Volume 92.4 fL (83.0-100.0); Mean Platelet Volume 9.4 fL (9.4-12.4); Monocytes # 0.3 K/mcL (0.0-1.3); Monocytes % 1.7 %; Neutrophils # 15.7 K/mcL (1.6-8.9); Platelet Count 287 K/mcL (140-400); Red Blood Count 3.02 M/mcL (4.19-5.50); Red Cell Distribution Width 15.1 % (11.5-14.5); Segmented Neutrophils % 96.2 %; White Blood Count 16.3 K/mcL (4.3-11.1)
[2021-08-31] MEDS: *HR* OxyCODONE Oral Soln 5 MG/5 ML UD.LIQ PO PRN ×2 (03:26→22:24)
[2021-08-31 03:36] LABS: BUN/Creatinine Ratio 18 (6-26); Blood Urea Nitrogen 22 mg/dL (8-23); Calcium 8.8 mg/dL (8.6-10.3); Carbon Dioxide 23 mEq/L (23-29); Chloride 102 mEq/L (98-107); Glucose 109 mg/dL (70-105); Osmolality,Calculated 284 (280-300); Potassium 4.7 mEq/L (3.5-5.1); Sodium 135 mEq/L (136-145); eGFR For African Americans > 60 (> 60); eGFR For Non-African Americans 57 (> 60)
[2021-08-31] MEDS: Sodium Chloride for inhalation 3 ML VIAL IH SCH ×3 (04:28→18:47)
[2021-08-31] MEDS ORDERED: Ketorolac 15 MG/ML VIAL IVP ONE (05:49)
[2021-08-31] MEDS ORDERED: *HR* OxyCODONE/APAP 5/325 TABLET PO ONE (05:49)
[2021-08-31] MEDS: Aspirin 81 MG TAB.CHEW PO SCH (10:00)
[2021-08-31] MEDS: lisinopriL 20 MG TABLET PO SCH (10:00)
[2021-08-31] MEDS: Metoprolol XL (24 HR) Succ 50 MG TAB.ER.24H PO SCH (10:00)
[2021-08-31] MEDS: *HR* Ticagrelor 90 MG TABLET PO SCH ×2 (10:00→22:28)
[2021-08-31] MEDS: Isosorbide MONOnitrate (24 HR) 30 MG TAB.ER.24H PO SCH (10:00)
[2021-08-31] MEDS: levoFLOXacin 750 MG/150 ML 750 MG/150 ML BAG IVPB SCH (10:00)
[2021-08-31] MEDS: Ipratropium/Albuterol Neb 3 ML IH SCH (10:22)
[2021-08-31] MEDS: Budesonide/Formoterol 160/4.5 1 PUFF INH IH SCH ×2 (10:22→23:08)
[2021-09-01] MEDS: Sodium Chloride for inhalation 3 ML VIAL IH SCH ×3 (03:34→19:58)
[2021-09-01] MEDS: *HR* OxyCODONE Oral Soln 5 MG/5 ML UD.LIQ PO PRN ×4 (04:35→22:00)
[2021-09-01 05:16] LABS: Basophils % 0.2 %; Eosinophils # 0.7 K/mcL (0.0-0.6); Eosinophils % 4.3 %; Hematocrit 28.8 % (37.5-50.1); Hemoglobin 8.9 g/dL (12.9-16.9); Immature Granulocytes % 0.8 % (0-4); Lymphocytes # 0.4 K/mcL (0.6-4.6); Lymphocytes % 2.2 %; Mean Corpuscular HGB Conc 30.9 g/dL (31.6-35.5); Mean Corpuscular Hemoglobin 28.3 pg (28.0-33.3); Mean Corpuscular Volume 91.7 fL (83.0-100.0); Mean Platelet Volume 9.5 fL (9.4-12.4); Monocytes # 0.9 K/mcL (0.0-1.3); Monocytes % 5.4 %; Neutrophils # 14.7 K/mcL (1.6-8.9); Platelet Count 268 K/mcL (140-400); Red Blood Count 3.14 M/mcL (4.19-5.50); Red Cell Distribution Width 15.2 % (11.5-14.5); Segmented Neutrophils % 87.1 %; White Blood Count 16.9 K/mcL (4.3-11.1)
[2021-09-01 06:22] LABS: Calcium 8.8 mg/dL (8.6-10.3); Potassium 3.5 mEq/L (3.5-5.1)
[2021-09-01] MEDS: Metoprolol XL (24 HR) Succ 50 MG TAB.ER.24H PO SCH (07:58)
[2021-09-01] MEDS: Aspirin 81 MG TAB.CHEW PO SCH (07:59)
[2021-09-01] MEDS: Isosorbide MONOnitrate (24 HR) 30 MG TAB.ER.24H PO SCH (07:59)
[2021-09-01] MEDS: *HR* Ticagrelor 90 MG TABLET PO SCH ×2 (07:59→20:59)
[2021-09-01] MEDS: levoFLOXacin 750 MG/150 ML 750 MG/150 ML BAG IVPB SCH (08:00)
[2021-09-01] MEDS: lisinopriL 20 MG TABLET PO SCH (08:00)
[2021-09-01] MEDS: Ipratropium/Albuterol Neb 3 ML IH SCH (09:27)
[2021-09-01] MEDS: Budesonide/Formoterol 160/4.5 1 PUFF INH IH SCH ×2 (09:27→20:00)
[2021-09-01] MEDS ORDERED: Perflutren Lipid Microsphere 1.3 ML in 0.9 % Sodium Chloride 8.7 ML IVP PRN ×2 (11:41→16:37)
[2021-09-02] MEDS ORDERED: *HR* LORazepam 2 MG/ML VIAL IVP STA (01:10)
[2021-09-02] MEDS: Sodium Chloride for inhalation 3 ML VIAL IH SCH ×3 (02:57→20:14)
[2021-09-02] MEDS: *HR* OxyCODONE Oral Soln 5 MG/5 ML UD.LIQ PO PRN (05:43)
[2021-09-02 06:02] LABS: Basophils % 0.2 %; Eosinophils # 0.6 K/mcL (0.0-0.6); Eosinophils % 4.1 %; Hematocrit 28.2 % (37.5-50.1); Hemoglobin 8.9 g/dL (12.9-16.9); Immature Granulocytes % 0.4 % (0-4); Lymphocytes # 0.4 K/mcL (0.6-4.6); Lymphocytes % 2.7 %; Mean Corpuscular HGB Conc 31.6 g/dL (31.6-35.5); Mean Corpuscular Hemoglobin 28.6 pg (28.0-33.3); Mean Corpuscular Volume 90.7 fL (83.0-100.0); Mean Platelet Volume 9.5 fL (9.4-12.4); Monocytes % 6.3 %; Neutrophils # 12.9 K/mcL (1.6-8.9); Platelet Count 257 K/mcL (140-400); Red Blood Count 3.11 M/mcL (4.19-5.50); Red Cell Distribution Width 15.2 % (11.5-14.5); Segmented Neutrophils % 86.3 %
[2021-09-02 06:26] LABS: BUN/Creatinine Ratio 18 (6-26); Blood Urea Nitrogen 23 mg/dL (8-23); Calcium 8.7 mg/dL (8.6-10.3); Carbon Dioxide 26 mEq/L (23-29); Chloride 97 mEq/L (98-107); Glucose 107 mg/dL (70-105); Osmolality,Calculated 276 (280-300); Potassium 3.7 mEq/L (3.5-5.1); Sodium 131 mEq/L (136-145); eGFR For African Americans > 60 (> 60); eGFR For Non-African Americans 55 (> 60)
[2021-09-02] MEDS: Isosorbide MONOnitrate (24 HR) 30 MG TAB.ER.24H PO SCH (09:09)
[2021-09-02] MEDS: Aspirin 81 MG TAB.CHEW PO SCH (09:09)
[2021-09-02] MEDS: Metoprolol XL (24 HR) Succ 50 MG TAB.ER.24H PO SCH (09:09)
[2021-09-02] MEDS: *HR* Ticagrelor 90 MG TABLET PO SCH ×2 (09:09→21:04)
[2021-09-02] MEDS: lisinopriL 20 MG TABLET PO SCH (09:09)
[2021-09-02] MEDS: levoFLOXacin 750 MG/150 ML 750 MG/150 ML BAG IVPB SCH (09:10)
[2021-09-02] MEDS: Ipratropium/Albuterol Neb 3 ML IH SCH (10:25)
[2021-09-02] MEDS: Budesonide/Formoterol 160/4.5 1 PUFF INH IH SCH ×2 (10:25→21:28)
[2021-09-02] MEDS ORDERED: *HR* LORazepam 1 MG TABLET PO ONE (11:44)
[2021-09-02] MEDS: Spironolactone 25 MG TABLET PO SCH (14:34)
[2021-09-02] MEDS ORDERED: polyethylene glycoL 3350 17 GM POWD.PACK PO PRN (14:41)
[2021-09-02] MEDS ORDERED: *HR* LORazepam 2 MG/ML VIAL IVP ONE (20:34)
[2021-09-02] MEDS ORDERED: Famotidine 20 MG/2 ML VIAL IVP ONE (20:34)
[2021-09-03] MEDS: Sodium Chloride for inhalation 3 ML VIAL IH SCH ×3 (00:25→15:55)
[2021-09-03] MEDS: Budesonide/Formoterol 160/4.5 1 PUFF INH IH SCH ×2 (07:48→20:18)
[2021-09-03] MEDS: Ipratropium/Albuterol Neb 3 ML IH SCH (07:48)
[2021-09-03] MEDS: Isosorbide MONOnitrate (24 HR) 30 MG TAB.ER.24H PO SCH (09:19)
[2021-09-03] MEDS: *HR* Ticagrelor 90 MG TABLET PO SCH (09:19)
[2021-09-03] MEDS: lisinopriL 20 MG TABLET PO SCH (09:19)
[2021-09-03] MEDS: Metoprolol XL (24 HR) Succ 50 MG TAB.ER.24H PO SCH (09:19)
[2021-09-03] MEDS: levoFLOXacin 750 MG/150 ML 750 MG/150 ML BAG IVPB SCH (09:20)
[2021-09-03] MEDS: Spironolactone 25 MG TABLET PO SCH (09:20)
[2021-09-03] MEDS: Aspirin 81 MG TAB.CHEW PO SCH (09:20)
[2021-09-03] MEDS ORDERED: Artificial Tears SOLN 15 ML BOTTLE BOTH EYES PRN (09:44)
[2021-09-03] MEDS ORDERED: polyethylene glycoL 3350 17 GM POWD.PACK GTUBE PRN (10:06)
[2021-09-03] MEDS ORDERED: E-Z-PAQUE (BARIUM SULF) SUSP 1 BOTTLE PO ONE (15:44)
[2021-09-03] MEDS ORDERED: E-Z-HD (BARIUM SULF) SUSPENSION PO ONE (15:44)
[2021-09-03] MEDS ORDERED: *HR* OxyCODONE Oral Soln 5 MG/5 ML UD.LIQ GTUBE PRN (21:00)
[2021-09-03] MEDS: *HR* Ticagrelor 90 MG TABLET GTUBE SCH (21:51)
[2021-09-03] MEDS ORDERED: Famotidine 20 MG/2 ML VIAL IVP ONE (23:35)
[2021-09-04 01:38] LABS: BUN/Creatinine Ratio 16 (6-26); Blood Urea Nitrogen 19 mg/dL (8-23); Calcium 8.2 mg/dL (8.6-10.3); Carbon Dioxide 27 mEq/L (23-29); Chloride 96 mEq/L (98-107); Glucose 145 mg/dL (70-105); Magnesium 1.5 mg/dL (1.6-2.6); Osmolality,Calculated 277 (280-300); Phosphorous 2.2 mg/dL (2.7-4.5); Potassium 3.7 mEq/L (3.5-5.1); Sodium 131 mEq/L (136-145); eGFR For African Americans > 60 (> 60); eGFR For Non-African Americans > 60 (> 60)
[2021-09-04 01:39] LABS: Basophils % 0.2 %; Eosinophils # 0.6 K/mcL (0.0-0.6); Eosinophils % 3.5 %; Hematocrit 28.9 % (37.5-50.1); Hemoglobin 9.2 g/dL (12.9-16.9); Immature Granulocytes % 0.6 % (0-4); Lymphocytes # 0.5 K/mcL (0.6-4.6); Lymphocytes % 2.8 %; Mean Corpuscular HGB Conc 31.8 g/dL (31.6-35.5); Mean Corpuscular Hemoglobin 28.6 pg (28.0-33.3); Mean Corpuscular Volume 89.8 fL (83.0-100.0); Mean Platelet Volume 9.5 fL (9.4-12.4); Monocytes # 0.8 K/mcL (0.0-1.3); Monocytes % 4.7 %; Neutrophils # 14.3 K/mcL (1.6-8.9); Platelet Count 261 K/mcL (140-400); Red Blood Count 3.22 M/mcL (4.19-5.50); Red Cell Distribution Width 14.9 % (11.5-14.5); Segmented Neutrophils % 88.2 %; White Blood Count 16.2 K/mcL (4.3-11.1)
[2021-09-04] MEDS: Sodium Chloride for inhalation 3 ML VIAL IH SCH ×2 (02:08→08:16)
[2021-09-04] MEDS: *HR* Ticagrelor 90 MG TABLET GTUBE SCH (08:15)
[2021-09-04] MEDS: Budesonide/Formoterol 160/4.5 1 PUFF INH IH SCH (08:16)
[2021-09-04] MEDS: Ipratropium/Albuterol Neb 3 ML IH SCH (08:16)
[2021-09-04] MEDS ORDERED: Spironolactone 25 MG TABLET GTUBE SCH (09:00)
[2021-09-04] MEDS ORDERED: lisinopriL 20 MG TABLET GTUBE SCH (09:00)
[2021-09-04] MEDS ORDERED: Aspirin 81 MG TAB.CHEW GTUBE SCH (09:00)
[2021-09-04 12:07] VITALS: BP 97/64; PULSE 69; TEMP 98; O2SAT 96
== END 2021-09-04 14:10 | disposition home health service (06) | DRG 392 ==
LOC: EMEROOARM 15:01 → 3BNU 15:01 → SUATTDRO 17:49 → 3BNU 21:43
PROVIDERS: ADMIT Internal Medicine; ATTEND Internal Medicine
PROC: ENDOEDS (2021-08-30 15:00)